=== PATIENT | male | born 2005 | race Caucasian/White ===

== ENCOUNTER 2023-09-24 12:46 | Emergency (ER) | payer OTHER ==
[~2023-09-24] VITALS: Ht 172.7 cm; Wt 60.7 kg
[2023-09-24 12:49] VITALS: BP 111/85; PULSE 67; RESP 18; TEMP 97.6
[2023-09-24] MEDS ORDERED: ONDA-104 PO (12:52)
[2023-09-27 03:06] LABS: HIV 1-2 SCREEN 4TH GEN W/RFLX Non Reactive (Non Reactive)
== END 2023-09-24 14:20 | disposition still patient (30) ==
LOC: EMS 12:47
DX: Z01.89 Encounter for other specified special examinations (principal); Z53.21 Procedure and treatment not carried out due to patient leaving prior to being seen by health care provider
CPT/HCPCS: 86592; 87389; 87491; 87591; 99281